=== PATIENT | female | born 1995 | race Caucasian/White ===

== ENCOUNTER 2017-10-01 05:50 | Day surgery (SDC) | payer BC ==
[~2017-10-01] VITALS: Ht 152.4 cm; Wt 35.8 kg
[2017-10-01] MEDS ORDERED: MIDAZOLAM HCL 5 MG/5 ML VIAL IVP ONE (07:20)
[2017-10-01] MEDS ORDERED: PROPOFOL 200MG/ 20ML VIAL (DIPRIVAN) IV ONE (07:20)
[2017-10-01] MEDS ORDERED: SEVOFLURANE 15 MIN GAS INH ONE (07:20)
[2017-10-01] MEDS ORDERED: POLYMYXIN 500,000/BACIT.10,000 UNITS in NS IRR 1 L IR ONE (07:53)
[2017-10-01] MEDS ORDERED: KETOROLAC TROMETHAMINE 30 MG VIAL IVP PRN (08:00)
[2017-10-01] MEDS ORDERED: fentaNYL CITRATE/PF 100 MCG/2 ML AMP IVP PRN ×2 (08:00)
[2017-10-01 10:08] VITALS: BP_SYST 105
[2017-10-01] MEDS ORDERED: OXYCODONE/ACETAMINOPHEN 5-325 TABLET PO PRN ×3 (11:00)
[2017-10-01] MEDS ORDERED: ONDANSETRON HCL 4 MG/2 ML VIAL IVP PRN (11:00)
[2017-10-01] MEDS ORDERED: PROMETHAZINE HCL 25 MG/ML AMP IM PRN ×2 (11:00)
[2017-10-01] MEDS ORDERED: HYDROmorphone 2 MG TAB PO PRN (11:00)
[2017-10-01] MEDS ORDERED: IBUPROFEN 600 MG TABLET PO PRN (11:00)
[2017-10-01] MEDS ORDERED: KETOROLAC TROMETHAMINE 30 MG VIAL IVP SCH (12:00)
== END 2017-10-01 09:55 | disposition home or self-care (01) ==
LOC: SDS 05:50 → SMU 07:45 → SDS 09:55
PROVIDERS: ATTEND Obstetrics & Gynecology
DX: N75.0 Cyst of Bartholin's gland (principal); J45.909 Unspecified asthma, uncomplicated; G40.309 Generalized idiopathic epilepsy and epileptic syndromes, not intractable, without status epilepticus; Z79.899 Other long term (current) drug therapy; Z83.3 Family history of diabetes mellitus; Z84.89 Family history of other specified conditions
CPT/HCPCS: 87070; 87070-TC; 87075-TC; 88304; J2250; J2704; J7120